=== PATIENT | male | born 1950 | race Caucasian/White ===

== ENCOUNTER 2017-12-07 11:16 | Emergency (ER) | payer OTHER ==
[~2017-12-07] VITALS: Ht 165.1 cm; Wt 76.2 kg
[2017-12-07 11:21] VITALS: BP 151/80
--- NOTE | 2017-12-07 12:00 | NUR ---
67m bib daughter with c/o 10/10 "sharp/pressure" constant left rib pain s/p hitting himself with truck door 2 days ago. No bruising noted to left side of ribs/chest. Pt also reports difficultly breathing when walking. Pt is aox4, with steady gait. RR are even and unlabored. Skin intact and warm/pink/dry. NAD. Awaiting er md neil. Pt positioned to comfort, bed down. Will continue to monitor.
--- NOTE | 2017-12-07 13:35 | NUR ---
PATIENT LEFT AFTER SPOKE TO PATIENT FOR DISCHARGE. PATIENT LEFT WITHOUT DISCHARGE INSTRUCTIONS. PIERRE MADE AWARE
== END 2017-12-07 13:35 | disposition left against medical advice (07) ==
LOC: MED 11:16
DX: S20.20XA Contusion of thorax, unspecified, initial encounter (principal); R03.0 Elevated blood-pressure reading, without diagnosis of hypertension; W06.XXXA Fall from bed, initial encounter; Y93.89 Activity, other specified; Y92.89 Other specified places as the place of occurrence of the external cause; Y99.8 Other external cause status
CPT/HCPCS: 71111; 82948; 99284

== ENCOUNTER 2019-06-09 14:20 | Emergency (ER) | payer SELFPAY ==
[~2019-06-09] VITALS: Ht 165.1 cm; Wt 79.4 kg
[2019-06-09 14:25] VITALS: BP 122/86
--- NOTE | 2019-06-09 14:28 | NUR ---
PATIENT AMBULATED TO BED 7.
--- NOTE | 2019-06-09 14:30 | NUR ---
68 Y MALE BIB FAMILY C/O RASH TO R SIDE OF BACK AND R RIB PAIN X 4 DAYS AGO. +ITCHING. AFEBRILE. PAIN 05/12. VSS. LATVIAN SPEAKING, FAMILY TRANSLATES. [id number]. VSS. BED IS DOWN, LOCKED, BED RAIL X 1, ERMD TO SEE PT. PMH- HEART STENT 2011 RX- DENIES Addendum: 06/09/19 at 1441 by [email or web address] NO OBVIOUS BRUISING. DENIES RECENT INJURY
--- NOTE | 2019-06-09 14:57 | NUR ---
[facility]
--- NOTE | 2019-06-09 15:20 | NUR ---
DR GARCIA AT BEDSIDE
[2019-06-09 15:36] VITALS: BP 125/84
--- NOTE | 2019-06-09 15:36 | NUR ---
Patient discharged with v/s stable. Written and verbal after care instructions given and explained. Patient alert, oriented and verbalized understanding of instructions. Ambulatory with steady gait. All questions addressed prior to discharge. ID band removed. Patient advised to follow up with PMD. Rx of NAPROSYN, NORCO, ACYCLOVIR given. Patient educated on indication of medication including possible reaction and side effects. Opportunity to ask questions provided and answered. FAMILY TRANSLATED TO [place].
== END 2019-06-09 15:36 | disposition home or self-care (01) ==
LOC: MED 14:20
DX: B02.9 Zoster without complications (principal); E11.9 Type 2 diabetes mellitus without complications; Z98.890 Other specified postprocedural states
CPT/HCPCS: 99283